=== PATIENT | female | born 1960 | race Two or more races ===

== ENCOUNTER 2023-08-28 15:26 | Emergency (ER) | payer MEDICAID, OTHER ==
[~2023-08-28] VITALS: Ht 160 cm; Wt 100.3 kg
[2023-08-28] MEDS ORDERED: INSU100I4 SC (16:41)
[2023-08-28 16:54] VITALS: BP 145/61; PULSE 75; RESP 18; TEMP 98; O2SAT 97
== END 2023-08-28 16:43 | disposition home or self-care (01) ==
LOC: ER 15:26
DX: E11.9 Type 2 diabetes mellitus without complications (principal); Z76.0 Encounter for issue of repeat prescription; Z88.8 Allergy status to other drugs, medicaments and biological substances